=== PATIENT | female | born 1955 | race American Indian/Alaskan Native ===

== ENCOUNTER 2016-11-21 18:44 | Inpatient (IN) | payer OTHER ==
[2016-11-21] MEDS ORDERED: MORPHINE IV ONE (23:29)
[2016-11-21] MEDS ORDERED: ZOFRAN IV ONE (23:29)
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
[2016-11-22 00:14] LABS: Basophils % (Auto) 0.2 % (0.0-1.8); Eosinophils % (Auto) 0.1 % (0.0-4.3); Hematocrit 40.5 % (30.3-42.9); Hemoglobin 13.5 gm/dl (10.1-14.3); Mean Corpuscular HGB Conc 33 % (30-34); Mean Corpuscular Hemoglobin 29 pg (28-32); Mean Corpuscular Volume 87 fl (79-97); Platelet Count 259 K/mm3 (140-440); Red Blood Count 4.68 M/mm3 (3.65-5.03); Red Cell Distribution Width 15.6 % (13.2-15.2); White Blood Count 9.7 K/mm3 (4.5-11.0)
[2016-11-22 00:24] LABS: INR 1.14 (0.87-1.13)
[2016-11-22 00:30] LABS: Creatine Kinase MB 4.4 ng/mL (0.0-4.0)
[2016-11-22 00:31] LABS: Alanine Aminotransferase 12 units/L (7-56); Albumin/Globulin Ratio 1.3 %; Anion Gap 19 mmol/L; BUN/Creatinine Ratio 21.66; Blood Urea Nitrogen 13 mg/dL (7-17); Calcium 8.9 mg/dL (8.4-10.2); Carbon Dioxide 29 mmol/L (22-30); Chloride 95.3 mmol/L (98-107); Creatine Kinase 217 units/L (30-135); Glucose 97 mg/dL (65-100); Potassium 3.6 mmol/L (3.6-5.0); Sodium 140 mmol/L (137-145)
[2016-11-22] MEDS ORDERED: NACL ONE (00:33)
[2016-11-22 02:18] LABS: Alkaline Phosphatase 72 units/L (35-129)
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
[2016-11-22 02:56] LABS: Urine Drugs of Abuse Note Disclamer
[2016-11-22 03:21] LABS: Bilirubin,Urine NEG (Negative); Blood,Urine NEG (Negative); Ketones,Urine NEG (Negative); Leukocyte Esterase,Urine MOD (Negative); Mucus,Urine FEW /HPF; Nitrite,Urine NEG (Negative); Protein,Urine <15 mg/dL mg/dL (Negative); Urobilinogen,Urine < 2.0 mg/dL (<2.0)
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
[2016-11-22] MEDS ORDERED: ASPIRIN PO ONE (05:11)
[2016-11-22] MEDS ORDERED: MILK OF MAGNESIA PO PRN (05:56)
[2016-11-22] MEDS ORDERED: ZOFRAN IV PRN (05:56)
[2016-11-22] MEDS ORDERED: TYLENOL PO PRN (05:56)
[2016-11-22] MEDS ORDERED: DULCOLAX PR PRN (05:56)
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
[2016-11-22 07:32] LABS: Creatine Kinase MB 4.1 ng/mL (0.0-4.0)
[2016-11-22 07:33] LABS: Creatine Kinase 242 units/L (30-135)
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
--- NOTE | 2016-11-22 09:42 | XRay Report ---
AP CHEST: HISTORY: Syncope AP view of the chest demonstrates a normal mediastinal and cardiac contour with clear lungs and normal bony and soft tissue structures. IMPRESSION: No acute cardiopulmonary process is identified.
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
[2016-11-22] MEDS: LOVENOX SUB-Q SCH (10:36)
[2016-11-22] MEDS: PERCOCET 5/325 PO PRN ×2 (10:36→17:57)
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
[2016-11-22 12:22] LABS: Creatine Kinase MB 3.2 ng/mL (0.0-4.0)
[2016-11-22 12:25] LABS: Creatine Kinase 231 units/L (30-135)
[2016-11-23] MEDS: BENADRYL IV PRN ×2 (00:02→07:26)
--- NOTE | 2016-11-23 03:06 | Admit Criteria Form ---
Admission Criteria Documentation: SYNCOPE Clinical Indications for Admission to Inpatient Care ( Place 'X' for any and all applicable criteria): Admission is indicated for syncope and ANY ONE of the following (1)(2)(3)(4)(5) (6)(7) : [X ]I. Inpatient admission required rather than observation care (Also use Syncope: Observation Care Criteria as appropriate) because of ANY ONE of the following: [ ]a) Hemodynamic instability that is severe or persistent [ ]b) Cardiac arrhythmias of immediate concern identified or strongly suspected (eg, needs electrophysiologic study) [ ]c) Acute coronary syndrome identified (Also use Myocardial Infarction or Angina Criteria form ) [ ]d) Structural cardiac disorder (eg, aortic stenosis) suspected as cause that requires immediate correction [ ]e) Respiratory symptoms (eg, dyspnea, tachypnea) that are severe or persistent [ ]f) Neurologic signs or symptoms that are severe or persistent ( eg, stroke, seizures, altered mental status) [ ]g) Severe electrolyte abnormalities requiring inpatient care [ ]h) Supplemental oxygen or respiratory treatment for over 24 hrs that are performable only in acute inpatient setting [ ]i) IV fluid to replace significant ongoing (eg, for over 24 hrs ) losses (>3 L/m2 per day) [ ]j) Continuous intravenous infusion of anticoagulation, platelet inhibitor, vasoactive, or antiarrhythmic medication(15)(16) [ ]k) Pulmonary artery catheter monitoring [ ]l) Temporary pacemaker placement(17) [ ]m) Emergent cardioversion(18) [X ]n) Other conditions, treatment or monitoring requiring inpatient admission [ ]II. Suspicion of imminently dangerous cause (eg, rare causes like pericardial tamponade, pulmonary embolism) [ ]III. Syncope causing severe injury requiring hospitalization Extended stay beyond goal length of stay may be needed for(28) [ ]a) Dangerous arrhythmia(15)(23)(27)(29) [ ]b) Myocardial ischemia [ ]c) Seizure disorder [ ]d) Syncope-related injuries The original [employer] content created by [employer] has been revised. The portions of the content which have been revised are identified through the use of italic text or in bold, and [employer] has neither reviewed nor approved the modified material. All other unmodified content is copyright [employer]. Please see references footnoted in the original [facility] edition 2016 Admission Criteria Met: Yes
[2016-11-23 05:26] LABS: Basophils % (Auto) 0.1 % (0.0-1.8); Eosinophils % (Auto) 2.1 % (0.0-4.3); Hematocrit 40.4 % (30.3-42.9); Hemoglobin 13.3 gm/dl (10.1-14.3); Mean Corpuscular HGB Conc 33 % (30-34); Mean Corpuscular Hemoglobin 28 pg (28-32); Mean Corpuscular Volume 86 fl (79-97); Platelet Count 257 K/mm3 (140-440); Red Blood Count 4.72 M/mm3 (3.65-5.03); Red Cell Distribution Width 15.2 % (13.2-15.2); White Blood Count 5.6 K/mm3 (4.5-11.0)
[2016-11-23 05:50] LABS: BUN/Creatinine Ratio 23.33; Blood Urea Nitrogen 14 mg/dL (7-17); Calcium 8.7 mg/dL (8.4-10.2); Carbon Dioxide 36 mmol/L (22-30); Chloride 92.8 mmol/L (98-107); Glucose 90 mg/dL (65-100); Potassium 3.3 mmol/L (3.6-5.0); Sodium 139 mmol/L (137-145)
[2016-11-23 05:54] LABS: Anion Gap 14 mmol/L
--- NOTE | 2016-11-23 07:34 | Vascular Lab Report ---
LOWER EXTREMITY VENOUS DUPLEX: REASON FOR EXAM: Pain of the lower extremities. COMMENTS ON THE RIGHT: All veins visualized are freely compressible without evidence of internal echogenicity. Flow is spontaneous and phasic throughout. COMMENTS ON THE LEFT: All veins visualized are freely compressible without evidence of internal echogenicity. Flow is spontaneous and phasic throughout. IMPRESSION: No evidence of acute or chronic deep venous thrombosis in either lower extremity.
--- NOTE | 2016-11-23 07:44 | Vascular Lab Report ---
RIGHT UPPER EXTREMITY VENOUS DUPLEX: REASON FOR EXAM: Pain and swelling of the right upper extremity COMMENTS ON THE RIGHT: All arm veins visualized are freely compressible without evidence of internal echogenicity. The subclavian and internal jugular veins are free of thrombus. Flow is spontaneous and phasic throughout. COMMENTS ON THE LEFT: The subclavian and internal jugular veins are free of thrombus. IMPRESSION: No evidence of acute or chronic deep venous thrombosis in the right upper extremity.
[2016-11-23 08:04] VITALS: BP 118/69
[2016-11-23] MEDS: LOVENOX SUB-Q SCH (09:32)
== END 2016-11-23 09:44 | disposition home or self-care (01) | DRG 918 ==
LOC: ED 18:44 → 4A 11-22 05:56
PROVIDERS: ADMIT Internal Medicine; ATTEND Internal Medicine
DX: T63.441A Toxic effect of venom of bees, accidental (unintentional), initial encounter (principal); N39.0 Urinary tract infection, site not specified; I10 Essential (primary) hypertension; H40.9 Unspecified glaucoma; Z82.49 Family history of ischemic heart disease and other diseases of the circulatory system; Z91.030 Bee allergy status; Y92.89 Other specified places as the place of occurrence of the external cause; Z87.828 Personal history of other (healed) physical injury and trauma
CPT/HCPCS: 36415; 70450; 71010; 72125; 74177; 78582; 80048; 80053; 80307; 81001; 82550; 82553; 84439; 84443; 84484; 85025; 85379; 85610; 85730; 93005; 93010; 93306; 93880; 93970; 96374; 96375; A9540; A9558; J1200; J1650; J2270; J2405; J2920; Q9967